=== PATIENT | male | born 1980 | race American Indian/Alaskan Native ===

== ENCOUNTER 2019-08-04 02:55 | Emergency (ER) | payer OTHER ==
[2019-08-04 03:13] VITALS: BP 133/91
[2019-08-04] MEDS ORDERED: IBUPROFEN 600 MG TAB PO ONE (03:43)
[2019-08-04] MEDS ORDERED: TETANUS,DIPH,PERTUSS(ACELL) VACCINE 0.5 ML SYRINGE IM ONE (03:43)
[2019-08-04] MEDS ORDERED: LIDOCAINE-MPF (1%) 10 MG/1 ML VIAL 5 ML INFILTRATI ONE (03:43)
--- NOTE | 2019-08-04 04:42 | Emergency Department Report ---
ED Laceration HPI - HPI Chief Complaint: Laceration/Recheck/Suture Stated Complaint: LAC TO L HAND/WORK ACCIDENT Occurred When: Today (1 HOUR AGO) Location: Upper Extremity (LEFT PALM LACERATION WITH PAIN) Severity: moderate Tetanus Status: Not up to Date (Given during this visit) Laceration Symptoms: Yes Pain (left palm pain due to bleeding laceration), No Foreign Body Sensation, No Numbness, No Weakness Other History: Patient is a 39-year-old -[place] male with no past medical history who presents to the ED with acute onset persistent severely painful left palm bleeding laceration after he accidentally caught his left palm cut by a box at work about one hour ago. Patient states that although he is able to perform active range of motion the bleeding is not well controlled. Patient denies numbness or tingling or weakness of left hand. Patient states that he is not up-to-date with his tetanus vaccination. ED Review of Systems ROS: Stated complaint: LAC TO L HAND/WORK ACCIDENT Other details as noted in HPI Comment: All other systems reviewed and negative Constitutional: denies: chills, fever Eyes: denies: eye pain, eye discharge, vision change ENT: denies: ear pain, throat pain Respiratory: denies: cough, shortness of breath, wheezing Cardiovascular: denies: chest pain, palpitations Endocrine: no symptoms reported Gastrointestinal: denies: abdominal pain, nausea, diarrhea Genitourinary: denies: urgency, dysuria Musculoskeletal: arthralgia (left palm pain due to a bleeding laceration). denies: back pain, joint swelling Skin: other (bleeding left palm laceration with pain). denies: rash, lesions Neurological: denies: headache, weakness, paresthesias Psychiatric: denies: anxiety, depression Hematological/Lymphatic: denies: easy bleeding, easy bruising ED Past Medical Hx - Past Medical History Previous Medical History?: No - Surgical History Past Surgical History?: Yes Hx Appendectomy: Yes - Social History Smoking Status: Current Every Day Smoker Substance Use Type: None - Medications Home Medications: Home Medications Medication Instructions Recorded Confirmed Last Taken Type Ibuprofen [Motrin] 800 mg PO Q8HR PRN #20 tablet 08/04/19 Unknown Rx Sulfamethoxazole/Trimethoprim 1 each PO Q12H #20 tablet 08/04/19 Unknown Rx [Bactrim DS TAB] Laceration Physical Exam - Exam General: Vital signs noted. No distress. Alert and acting appropriately. Wound Length (cm): 3 Laceration Location: Upper Extremity (palpable left palm tenderness due to a bleeding 3 cm laceration) Full Body Front + Back: 1 - Palpable left palm tenderness due to a bleeding 3 cm laceration Laceration Exam: Yes Normal Distal CMS, No Foreign Body, No Exposed Tendon, Vessel, or Nerve, No Tendon Injury ED Course Vital Signs 08/04/19 08/04/19 03:12 04:11 Temperature 98.1 F Pulse Rate 76 Respiratory 20 16 Rate Blood Pressure 133/91 O2 Sat by Pulse 99 Oximetry - Laceration /Wound Repair Left Palm Hand Wound Location: upper extremity (left palm laceration) Wound Length (cm): 3 Wound's Depth, Shape: superficial, linear Wound Explored: contaminated Irrigated w/ Saline (ccs): 50 Betadine Prep?: Yes Anesthesia: 1% Lidocaine Volume Anesthetic (ccs): 5 Wound Debrided: extensive Wound Repaired With: sutures Suture Size/Type: 4:0, proline Number of Sutures: 5 Layer Closure?: No Sterile Dressing Applied?: Yes Progress: Patient tolerated the procedure well. Patient was discharged to home on pain medications on prophylactic antibiotics after the wound was cleaned thoroughly and dressed appropriately. Patient was advised to follow-up with his primary care physician in 7-10 days for reevaluation or return to the ED immediately if symptoms get worse. Patient was otherwise advised to either return to the ED or to his primary care physician in 12-14 days for suture removal. Critical care attestation.: If time is entered above; I have spent that time in minutes in the direct care of this critically ill patient, excluding procedure time. ED Disposition Clinical Impression: Laceration of left palm Qualifiers: Encounter type: initial encounter Qualified Code(s): S61.412A - Laceration without foreign body of left hand, initial encounter Disposition: TO HOME OR SELFCARE Is pt being admited?: No Does the pt Need Aspirin: No Condition: Stable Instructions: Suture Care (ED), Laceration (ED) Additional Instructions: Take medications with food, drink plenty of fluids and follow up with your primary care physician in 7-10 days for reevaluation. Return to the ED immediately if symptoms get worse. Otherwise return to the ED or to primary care physician in 12-14 days for suture removal Prescriptions: Sulfamethoxazole/Trimethoprim [Bactrim DS TAB] 1 each PO Q12H #20 tablet Ibuprofen [Motrin] 800 mg PO Q8HR PRN #20 tablet PRN Reason: Pain , Severe (7-10) Referrals: [facility] [Outside] - 7-10 days Forms: Work/School Release Form(ED) Time of Disposition: 04:36 Print Language: UZBEK
== END 2019-08-04 04:55 | disposition home or self-care (01) ==
LOC: EDBD → ED 02:55
DX: S61.412A Laceration without foreign body of left hand, initial encounter (principal); F17.200 Nicotine dependence, unspecified, uncomplicated; Z90.49 Acquired absence of other specified parts of digestive tract; W45.8XXA Other foreign body or object entering through skin, initial encounter; Y93.89 Activity, other specified; Y92.89 Other specified places as the place of occurrence of the external cause; Y99.8 Other external cause status
CPT/HCPCS: 90471; 90715; 99282

== ENCOUNTER 2019-10-15 13:16 | Emergency (ER) | payer OTHER ==
--- NOTE | 2019-10-15 14:58 | Event Note ---
ED Screening Note Date of service: 10/15/19 Time: 14:55 ED Screening Note: 39 y o male non diabetic male presents with ankle wound sustained from wood pellet stabing to the ankle patient states not healing wounds and pain causing him to loose sleep This initial assessment/diagnostic orders/clinical plan/treatment(s) is/are subject to change based on patients health status, clinical progression and re- assessment by fellow clinical providers in the ED. Further treatment and workup at subsequent clinical providers discretion. Patient/guardian urged not to elope from the ED as their condition may be serious if not clinically assessed and managed. Initial orders include: xr left ankle wound check,dressing and
--- NOTE | 2019-10-15 15:35 | XRay Report ---
LEFT ANKLE 2 VIEWS INDICATION / CLINICAL INFORMATION: Puncture wound. COMPARISON: None available. FINDINGS: BONES / JOINT(S): No acute fracture or subluxation. There are mild degenerative changes involving the tibiotalar joint posteriorly. There is minimal spurring at the insertion of the Achilles tendon on t he calcaneus. SOFT TISSUES: There is moderate generalized soft tissue swelling overlying both malleoli. ADDITIONAL FINDINGS: None. IMPRESSION: I see no evidence of a radiopaque foreign body or acute osseous abnormality. Signer Name: Luan Evans MD Signed: 10/15/2019 3:30 PM Workstation Name: [id number]
--- NOTE | 2019-10-15 20:41 | Emergency Department Report ---
ED Lower Extremity HPI - General Chief Complaint: Extremity Problem,Nontraumatic Stated Complaint: BILATERAL ANKLE PAIN Time Seen by Provider: 10/15/19 20:08 Source: patient Mode of arrival: Ambulatory Limitations: No Limitations - History of Present Illness Initial Comments: This is a 39-year-old -[place] male who presents to the emergency room with slow healing wounds to bilateral medial ankles for 2 months. Patient states a pair of shoes rubbed against his right ankle causing sores to form and then he bumped his left ankle against a pallet while at work. Patient states wound improved some since applying peroxide, Neosporin, and aloe vera but wound never scabbed over. He is now complaining of pain. He denies history of diabetes or peripheral vascular disease. He denies numbness and tingling. Reports occasional swelling. Denies redness or warmth to the area. MD Complaint: ankle injury (Bilateral) Onset/Timin -: month(s) Injury: Ankle: Right, Left Place: work Severity: moderate Severity scale (0 -10): 8 Improves With: nothing Context: direct blow, other (Shoes rubbing against right ankle) Associated Symptoms: swelling, ambulatory. denies: snap/pop sensation, numbness , tingling Treatments Prior to Arrival: bandage - Related Data Previous Rx's Medication Instructions Recorded Last Taken Type Ibuprofen [Motrin] 800 mg PO Q8HR PRN #20 tablet 08/04/19 Unknown Rx Sulfamethoxazole/Trimethoprim 1 each PO Q12H #20 tablet 08/04/19 Unknown Rx [Bactrim DS TAB] Allergies Allergy/AdvReac Type Severity Reaction Status Date / Time No Known Allergies Allergy Unverified 10/15/19 13:21 ED Review of Systems ROS: Stated complaint: BILATERAL ANKLE PAIN Other details as noted in HPI Constitutional: denies: chills, fever Respiratory: denies: cough, shortness of breath, wheezing Cardiovascular: denies: chest pain, palpitations Gastrointestinal: denies: abdominal pain, nausea, diarrhea Musculoskeletal: denies: back pain, joint swelling, arthralgia Skin: lesions (Slow healing lesions to bilateral medial ankles) Neurological: denies: headache, weakness, paresthesias Psychiatric: denies: anxiety, depression ED Past Medical Hx - Past Medical History Previous Medical History?: No - Surgical History Past Surgical History?: Yes Hx Appendectomy: Yes - Social History Smoking Status: Never Smoker Substance Use Type: None - Medications Home Medications: Home Medications Medication Instructions Recorded Confirmed Last Taken Type Ibuprofen [Motrin] 800 mg PO Q8HR PRN #20 tablet 08/04/19 Unknown Rx Sulfamethoxazole/Trimethoprim 1 each PO Q12H #20 tablet 08/04/19 Unknown Rx [Bactrim DS TAB] ED Physical Exam - General Limitations: No Limitations General appearance: alert, in no apparent distress, obese (Morbidly obese) - Respiratory Respiratory exam: Present: normal lung sounds bilaterally. Absent: respiratory distress - Cardiovascular Cardiovascular Exam: Present: regular rate, normal rhythm. Absent: systolic murmur, diastolic murmur, rubs, gallop - GI/Abdominal GI/Abdominal exam: Present: soft, normal bowel sounds. Absent: distended, tend erness, guarding, rebound, rigid - Extremities Exam Extremities exam: Present: normal inspection - Neurological Exam Neurological exam: Present: alert, oriented X3, normal gait - Psychiatric Psychiatric exam: Present: normal affect, normal mood - Skin Skin exam: Present: warm, dry, intact, normal color, other (2-3 centimeter wounds to bilateral medial ankles, TTP, weeping, no surrounding cellulitis, mild swelling, FROM). Absent: rash, cyanosis, diaphoretic, erythema, urticaria, vesicles, petechiae, pallor, ecchymosis ED Course Vital Signs 10/15/19 14:51 Temperature 98.1 F Pulse Rate 85 Respiratory 18 Rate Blood Pressure 152/92 O2 Sat by Pulse 99 Oximetry ED Lower Extremity MDM - Lab Data Result diagrams: 10/15/19 20:52 10/15/19 20:52 Lab Results 10/15/19 10/15/19 Range/Units 20:52 20:52 WBC 7.1 (4.5-11.0) K/mm3 RBC 4.69 (3.65-5.03) M/mm3 Hgb 12.8 (11.8-15.2) gm/dl Hct 39.0 (35.5-45.6) % MCV 83 L (84-94) fl MCH 27 L (28-32) pg MCHC 33 (32-34) % RDW 17.1 H (13.2-15.2) % Plt Count 267 (140-440) K/mm3 Lymph % (Auto) 30.2 (13.4-35.0) % Mclennan % (Auto) 7.9 H (0.0-7.3) % Eos % (Auto) 1.9 (0.0-4.3) % Baso % (Auto) 0.5 (0.0-1.8) % Lymph # 2.2 (1.2-5.4) K/mm3 Mclennan # 0.6 (0.0-0.8) K/mm3 Eos # 0.1 (0.0-0.4) K/mm3 Baso # 0.0 (0.0-0.1) K/mm3 Seg Neutrophils % 59.5 (40.0-70.0) % Seg Neutrophils # 4.2 (1.8-7.7) K/mm3 Sodium 141 (137-145) mmol/L Potassium 4.3 (3.6-5.0) mmol/L Chloride 105.5 (98-107) mmol/L Carbon Dioxide 23 (22-30) mmol/L Anion Gap 17 mmol/L BUN 11 (9-20) mg/dL Creatinine 1.0 (0.8-1.5) mg/dL Estimated GFR > 60 ml/min BUN/Creatinine Ratio 11 % Glucose 93 (75-100) mg/dL Calcium 9.0 (8.4-10.2) mg/dL - Radiology Data Radiology results: report reviewed LEFT ANKLE 2 VIEWS INDICATION / CLINICAL INFORMATION: Puncture wound. COMPARISON: None available. FINDINGS: BONES / JOINT(S): No acute fracture or subluxation. There are mild degenerative changes involving the tibiotalar joint posteriorly. There is minimal spurring at the insertion of the Achilles tendon on the calcaneus. SOFT TISSUES: There is moderate generalized soft tissue swelling overlying both malleoli. ADDITIONAL FINDINGS: None. IMPRESSION: I see no evidence of a radiopaque foreign body or acute osseous abnormality. - Medical Decision Making This is a 39-year-old male that presents to the emergency room with slow healing ulcers to bilateral ankles for 2 months. Vitals are stable and patient in no acute distress. Work-up: CBC, BMP, and x-ray of left ankle. All labs are unremarkable. X-ray to left ankle findings of no evidence of a radiopaque foreign body or acute osseous abnormality. According to work-up and exam there is low suspicion of osteomyelitis, diabetic ulcer, and cellulitis. Wounds cleaned with normal saline and wet-to-dry dressings applied. Instructed to change dressing twice a day. Referral to wound care for continued care. Referral to primary care. Patient discharged home with strict return instructions. Critical care attestation.: If time is entered above; I have spent that time in minutes in the direct care of this critically ill patient, excluding procedure time. ED Disposition Clinical Impression: Wound of left ankle Qualifiers: Encounter type: initial encounter Qualified Code(s): S91.002A - Unspecified open wound, left ankle, initial encounter Wound of right ankle Qualifiers: Encounter type: initial encounter Qualified Code(s): S91.001A - Unspecified open wound, right ankle, initial encounter Disposition: TO HOME OR SELFCARE Is pt being admited?: No Condition: Stable Instructions: Acute Wound Care (ED) Additional Instructions: Follow-up with wound care clinic for further management of wounds to both ankles. Clean wound twice a day with soap and water and apply a wet dressing with normal saline gauze and a clean 4 x 4 gauze and tape. Return to the emergency room only with worsening symptoms. I have also provided a list of [facility] doctors for follow-up. Referrals: [facility] [Outside] - 3-5 Days [facility] [Outside] - 3-5 Days [facility] [Outside] - 3-5 Days Forms: Work/School Release Form(ED), Accompanied Note Time of Disposition: 21:44
[2019-10-15 21:19] LABS: Basophils % (Auto) 0.5 % (0.0-1.8); Eosinophils # (Auto) 0.1 K/mm3 (0.0-0.4); Eosinophils % (Auto) 1.9 % (0.0-4.3); Hemoglobin 12.8 gm/dl (11.8-15.2); Lymphocytes # (Auto) 2.2 K/mm3 (1.2-5.4); Lymphocytes % (Auto) 30.2 % (13.4-35.0); Mean Corpuscular HGB Conc 33 % (32-34); Mean Corpuscular Volume 83 fl (84-94); Monocytes # (Auto) 0.6 K/mm3 (0.0-0.8); Monocytes % (Auto) 7.9 % (0.0-7.3); Platelet Count 267 K/mm3 (140-440); Red Blood Count 4.69 M/mm3 (3.65-5.03); Red Cell Distribution Width 17.1 % (13.2-15.2)
[2019-10-15 21:28] LABS: BUN/Creatinine Ratio 11; Blood Urea Nitrogen 11 mg/dL (9-20); Hemolysis Index 23
[2019-10-15 22:12] VITALS: BP 137/96
== END 2019-10-15 22:00 | disposition home or self-care (01) ==
LOC: ED 13:16
DX: S91.002A Unspecified open wound, left ankle, initial encounter (principal); S91.001A Unspecified open wound, right ankle, initial encounter; Z90.49 Acquired absence of other specified parts of digestive tract; Z79.899 Other long term (current) drug therapy; X58.XXXA Exposure to other specified factors, initial encounter; Y93.89 Activity, other specified; Y92.89 Other specified places as the place of occurrence of the external cause; Y99.8 Other external cause status
CPT/HCPCS: 36415; 80048; 85025